=== PATIENT | female | born 1950 | race African-American/Black ===

== ENCOUNTER 2018-08-01 14:35 | Emergency (ER) | payer MEDICARE ==
[~2018-08-01] VITALS: Ht 165.1 cm; Wt 97.5 kg
[2018-08-01] MEDS ORDERED: Methocarbamol 500mg tab ORAL ONE (15:00)
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
[2018-08-01 15:14] VITALS: BP 144/76
--- NOTE | 2018-08-01 16:13 | NUR ---
ED Nurse Note: Patient was told to remove Lidocane patch tonight before going to bed. pt verbalized understanding.
[2018-08-01] MEDS ORDERED: ROBAXIN500 MG PO (16:25)
[2018-08-01] MEDS ORDERED: TYLENOL EXTRA500 MG ORAL (16:25)
[2018-08-01] MEDS ORDERED: LIDOCAINE700 M1 TP (16:25)
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
[2018-08-01 16:38] VITALS: BP 130/72
--- NOTE | 2018-08-01 16:39 | NUR ---
ER DISCHARGE NOTE: Patient is cleared to be discharged per ERMD, pt is aox4, on room air, with stable vital signs. pt was given dc and prescription instructions, pt was able to verbalize understanding, pt id band removed. pt is able to ambulate with steady gait. pt took all belongings.
== END 2018-08-01 16:39 | disposition home or self-care (01) ==
LOC: EMR 15:17
DX: S13.9XXA Sprain of joints and ligaments of unspecified parts of neck, initial encounter (principal); V43.52XA Car driver injured in collision with other type car in traffic accident, initial encounter; Y92.410 Unspecified street and highway as the place of occurrence of the external cause; M54.5 Low back pain; I10 Essential (primary) hypertension
CPT/HCPCS: 72020; 72040; 99284